=== PATIENT | female | born 1990 | race Two or more races ===

== ENCOUNTER 2022-09-19 20:12 | Inpatient (IN) | payer OTHER ==
[~2022-09-19] VITALS: Ht 162.6 cm; Wt 68.5 kg
[2022-09-19] MEDS ORDERED: PRENATABS RX T1 EACH PO (20:44)
== END 2022-09-21 19:30 | disposition home or self-care (01) | DRG 807 ==
LOC: LDR 20:12 → OB/GYN 20:12 → LDR 21:01 → OB/GYN 09-20 00:07
PROVIDERS: ADMIT Obstetrics & Gynecology; ATTEND Obstetrics & Gynecology
PROC: 10E0XZZ Delivery of Products of Conception, External Approach (ICD-10-PCS; principal; 2022-09-19)
PROC: 0W8NXZZ Division of Female Perineum, External Approach (ICD-10-PCS; 2022-09-19)
PROC: 4A1HXCZ Monitoring of Products of Conception, Cardiac Rate, External Approach (ICD-10-PCS; 2022-09-19)
DX: O80 Encounter for full-term uncomplicated delivery (principal); Z37.0 Single live birth; Z3A.37 37 weeks gestation of pregnancy; Z20.822 Contact with and (suspected) exposure to COVID-19